=== PATIENT | male | born 1940 | race Caucasian/White ===

== ENCOUNTER 2016-12-04 20:36 | Inpatient (IN) | payer OTHER, BC ==
--- NOTE | 2016-12-04 20:47 | PDOC ---
Upper Respiratory HPI - General Chief Complaint: Respiratory Complaint Stated Complaint: COUGH AND SHORT OF BREATH Date Seen by Provider: 12/04/16 Time Seen by Provider: 20:47 - History of Present Illness Initial Comments: Phong is a 76-year-old male who presents to the emergency department with cough and shortness of breath. He shouldn't indicates that he has been sick for the last week or so. Patient reports that he recently got the pneumonia shot. Last year he got pneumonia after receiving the pneumonia shot. Patient reports that his doctor gave him Augmentin to take if he started to feel sick. He has taken this for the last 2 days. Patient has felt subjective fevers. The cough has occasionally been productive. He denies any chest pain. No pain or swelling in his lower extremities. He has had nausea without vomiting. - Patient Home Medications Home Medications: Home Medications Aspirin [Aspirin Ec] 1 tab PO QD #90 tab 01/18/16 Triamcinolone Acetonide 30 gm TOPICAL QID PRN #1 tube 01/18/16 Amlodipine Besylate/Benazepril [Lotrel] 1 each PO QHS #90 cap 01/19/16 Metformin HCl 1 tab ORAL BID #180 tab 01/19/16 Tamsulosin HCl [Flomax] 0.4 mg PO DAILY #90 cap 01/19/16 Carvedilol 1 tab PO BID #180 tab 02/28/16 Amoxicillin/Potassium Clav [Augmentin 875-125 Tablet] 1 tab PO BID #14 tab 08/30 - Patient Allergies Allergies/Adverse Reactions: Allergies Allergy/AdvReac Type Severity Reaction Status Date / Time [id number] Reductase AdvReac Mild NOT Verified 12/04/16 22:58 Inhibitor APPLICABLE Past Medical History - heen HEENT History: Cataracts, Hard of Hearing, Dentures/Partials Additional HEENT History: CHRONIC SINUSITIS Cardiovascular History: Hypertension, Hyperlipidemia Respiratory History: Denies History, Other (please comment) Gastrointestinal History: GERD Genitourinary History: Other (please comment) Additional Genitourinary History: Enlarged prostate Endocrine History: Type 2 Diabetes (oral) Musculoskeletal History: Denies History Neurological History: Other (please comment) Additional Neurological History: DIABETIC NEUROPATHY Blood Disorders: Denies History Psychiatric History: Denies History History of Sexually Transmitted Diseases: No Cancer History: Denies History History of MDRO: No History of Other Communicable Diseases: No Alcohol Use: Occasionally Substance Use Type: None Previous Surgical History: Yes Type / Date of Surgery: TONSILS AND ADENOIDS. REMOVAL SPOT RIGHT SIDE OF FACE. SURGERY RIGHT GREAT TOE Anesthesia Reactions: No Malignant Hyperthermia: No Significant Family History: Heart disease, Hypertension Past Medical History Reviewed: Reviewed - Changes Made ROS - Limitations ROS Limitations: No Limitations Constitution: REPORTS: Other (Subjective fever) Cardiovascular: DENIES: Chest Pain Respiratory: REPORTS: Cough Productive, Shortness Of Breath Neurological: REPORTS: Denies Neuro Symptoms Gastrointestinal: REPORTS: Nausea. DENIES: Abdominal Pain, Vomitting Endocrine: REPORTS: Fatigue Musculoskeletal: REPORTS: Denies MS Symptoms Genitourinary: REPORTS: Denies Symptoms Eyes: REPORTS: Denies Symptoms ENT: REPORTS: Denies Symptoms Skin: REPORTS: Denies Skin Symptoms Immunologic: POSITIVE: Denies Symptoms Psychiatric: POSITIVE: Denies Psych Symptoms Upper Respiratory/Fever Exam - General Appearance General Appearance: REPORTS: Alert, Cooperative, No Acute Distress - HEENT HEENT: POSITIVE: Head Inspection Nml, Eyes Inspection Nml, Nose Inspection Nml, Oral/Dental Inspect. Nml, PERRL - Neck Neck: REPORTS: Normal Inspection, Supple. DENIES: Lymphadenopathy - Respiratory Respiratory: REPORTS: Other (Course breath sounds bilaterally) - Abdomen Abdomen: Soft: (All Quadrants), Normal Bowel Sounds: (All Quadrants), Denies Tenderness: (All Quadrants), No Splenomegaly: (All Quadrants), No Hepatomegaly: (All Quadrants), No Guarding: (All Quadrants), No Rebound: (All Quadrants) - Cardiovascular Cardiovascular: REPORTS: Regular Rate and Rhythm, Heart Sounds Normal, No JVD - Skin Skin: REPORTS: Intact, Warm, Dry - Extremities Extremity: Non-Tender: (RLE), (LLE), Normal ROM: (RLE), (LLE), Normal Inspection : (RLE), (LLE) - Neurological / Psychological Neurological: POSITIVE: Affect Apporpriate, Oriented X3 Upper Resp/Fever Progress - Results Reviewed by me Lab Results:: Laboratory Results 12/04/16 12/04/16 Range/Units 20:55 21:01 WBC 11.75 H (4.8-10.8) 10^3/uL RBC 5.52 (4.70-6.10) 10^6/uL Hgb 15.6 (14.0-18.0) g/dL Hct 46.4 (42.0-52.0) % MCV 84.1 (80-90) FL MCH 28.3 (27-31) PG MCHC 33.6 (33-37) g/dL RDW Std Deviation 44.4 (39-50) fL RDW Coeff of Karen 14.6 H (11.5-14.5) % Plt Count 384 H (140-350) 10*3/uL MPV 9.5 (7.4-12.2) FL Immature Gran % (Auto) 0.3 (0-5) % Neut % (Auto) 77.3 (50-80) % Lymph % (Auto) 13.3 (10-50) % [place] % (Auto) 5.8 (5-15) % Eos % (Auto) 3.0 (0-8) % Baso % (Auto) 0.3 (0-1) % Immature Gran # (Auto) 0.03 10*3/UL Neut # (Auto) 9.10 10*3/UL Lymph # (Auto) 1.56 10*3/uL [place] # (Auto) 0.68 (0.3-0.8) 10*3/UL Eos # (Auto) 0.35 10*3/UL Baso # (Auto) 0.03 10*3/UL WBC Morphology Comment Normal morphology (NORM) Plt Morphology Comment Normal morphology (NORM) RBC Morph Comment Normal morphology (NORM) VBG pH 7.42 (7.32-7.42) VBG pCO2 40 L (45-55) mmHg VBG HCO3 26 (22-26) mmol/L VBG Base Excess 1 (-2-2) MMOL/L Sodium 132 L (135-145) meq/L Potassium 4.0 (3.8-5.2) meq/L Chloride 98 (98-112) meq/L Carbon Dioxide 24 (23-33) meq/L Anion Gap 10 (5-20) BUN 12 (7-22) mg/dL Creatinine 0.6 L (0.70-1.50) mg/dL Estimated GFR Facility Engineer BUN/Creatinine Ratio 20.00 (6-20) Glucose 130 H (78-110) mg/dL Calculated Osmolality 275.0 (267-292) mOsm/kg Calcium 9.3 (8.7-10.7) mg/dL Total Bilirubin 0.6 (0.3-1.2) mg/dL AST 20 L (21-57) IU/L ALT 13 L (21-72) IU/L Alkaline Phosphatase 86 (38-126) IU/L Troponin I 0.021 (< 0.040) ng/mL Total Protein 7.5 (6.1-8.0) g/dL Albumin 3.9 (3.5-4.8) g/dL Globulin 3.6 (2.50-4.10) g/dL Albumin/Globulin Ratio 1.00 L (1.3-2.0) mg/g EKG Interpreted/Reviewed By Me:: Yes (Unchanged from prior. ST changes in V5 and V6) - Patient's Progress MDM / ED Course: Phong is a 76-year-old male who presents to the emergency department with cough and shortness of breath. His vital signs are notable for hypoxia. Examination demonstrates well-appearing male in no acute distress with coarse breath sounds. Differential diagnosis includes but is not limited to ACS, pulmonary edema, bronchitis, pneumonia. EKG was unchanged from priors and troponin was negative making a cardiac cause less likely. Patient was given duo neb x2 and remained hypoxic. CBC was notable for elevated WBC count. CXR demonstrated findings consistent with early PNA vs pulmonary scarring. Given hypoxia with cough patient was treated for PNA with ceftriaxone and azithromycin and will be admitted for further care. - Consult Consult (If Yes, Name of Consulting MD & Time Called): Yes Consulting MD will see pt:: [place] [facility] [place] - Estimated PCT Patient Care Time (In Minutes): 30 Vital Signs - Recent Vital Signs Vital Signs: Vital Signs (Last 8 hours) Temp Pulse Pulse Resp BP Pulse Ox 12/05/16 03:00 62 92 12/04/16 22:51 20 12/04/16 22:06 97.1 F 69 20 149/64 93 - VS Reviewed Vital Signs Reviewed: Yes Discharge Clinical Impression: Hypoxia Discharge Disposition: Admit to Observation Condition: Stable Date Decision to Admit to Inpatient: 12/04/16 Time Decision to Admit to Inpatient: 22:02
[2016-12-04] MEDS ORDERED: IPRATROPIUM/ALBUTEROL SULFATE 3 ML NEB NEB ONE ×2 (20:48→21:31)
[2016-12-04] MEDS ORDERED: NORMAL SALINE 10 ML SYRINGE FLUSH IVP PRN (20:48)
[2016-12-04 21:04] LABS: BASOPHILS # (AUTO) 0.03 10*3/UL; BASOPHILS % (AUTO) 0.3 % (0-1); EOSINOPHILS # (AUTO) 0.35 10*3/UL; HEMATOCRIT 46.4 % (42.0-52.0); HEMOGLOBIN 15.6 g/dL (14.0-18.0); LYMPHOCYTES # (AUTO) 1.56 10*3/uL; MEAN CORPUSCULAR HEMOGLOBIN 28.3 PG (27-31); MEAN CORPUSCULAR HGB CONC 33.6 g/dL (33-37); MEAN CORPUSCULAR VOLUME 84.1 FL (80-90); MEAN PLATELET VOLUME 9.5 FL (7.4-12.2); MONOCYTES # (AUTO) 0.68 10*3/UL (0.3-0.8); MONOCYTES % (AUTO) 5.8 % (5-15); NEUTROPHILS % (AUTO) 77.3 % (50-80); RED BLOOD COUNT 5.52 10^6/uL (4.70-6.10)
[2016-12-04 21:05] LABS: PLATELET MORPHOLOGY COMMENT NORMAL MORPHOLOGY (NORM); RBC MORPHOLOGY COMMENT NORMAL MORPHOLOGY (NORM); WBC MORPHOLOGY COMMENT NORMAL MORPHOLOGY (NORM)
--- NOTE | 2016-12-04 21:12 | EKG ---
[address] [address] Measurements Intervals [place] Rate: 67 P: 75 WV: 240 QRS: 78 QRSD: 122 T: 124 QT: 449 QTc: 464 Interpretive Statements SINUS RHYTHM WITH FIRST DEGREE AV BLOCK WITH OCCASIONAL SUPRAVENTRICULAR PREMATURE COMPLEXES LEFT VENTRICULAR HYPERTROPHY AND ST-T CHANGE Compared to ECG 01/11/2016 05:45:38 No significant changes Electronically Signed On 12-05-16 13:21:13 MDT by Arian Michael [email or web address]
[2016-12-04 21:14] LABS: BLOOD UREA NITROGEN 12 mg/dL (7-22); CALCIUM 9.3 mg/dL (8.7-10.7); SERUM ALBUMIN 3.9 g/dL (3.5-4.8)
[2016-12-04] MEDS ORDERED: cefTRIAXone Inj 1 GM in Sodium Chloride 0.9% 100 ML IV ONE (21:58)
[2016-12-04] MEDS ORDERED: AZITHROMYCIN 250 MG TABLET PO ONE ×2 (21:58→22:09)
[2016-12-04 22:47] LABS: VENOUS PH 7.42 (7.32-7.42)
[2016-12-04] MEDS ORDERED: LIDOCAINE W/ SODIUM BICARB 0.5 ML SYR SUBD PRN (23:11)
--- NOTE | 2016-12-04 23:26 | PDOC ---
History and Physical - History of Present Illness Date and Time of Service: 12/04/2016 11:25 PM Chief Complaint: Cough, shortness of breath and phlegm production of a week duration History of Present Illness: This is a 76 years old male with medical history significant for history of hypertension, diabetes, cardiomyopathy with ejection fraction of 30-35% on echo done December last year and also history of previous pneumonia last year who presented to the hospital with history of cough and shortness of breath been going on for about a week. There is with the cough there is a phlegm production , he is denying chest pain. He did report some subjective fever. He has a prescription for Augmentin which he start taking about 2 days ago. He felt more short of breath the last 2 days and because of that he came into the ER. His sats were in the mid 80s per the report from the ER physician, chest x-ray suggested maybe early pneumonia so he was put on IV antibiotics and was admitted. He did receive a nebulizer treatment and he said that helped his breathing. He has a history of chronic diarrhea but otherwise no other symptoms. Past Medical History Medical History: 1. Hypertension. 2. Diabetes. 3. History of previous pneumonia last year. 4. Cardiomyopathy, ejection fraction 30-35% on echo done December 2015, large fixed inferior posterior defect on nuclear scan done in December 2015. 5. BPH Surgical History: History of previous neck surgery Pertinent Family History: History of coronary artery disease in his uncle and father Past Social History: Smoke less than a pack a day to 5 years, occlusion drink, no drugs. Tobacco Use: Current Every Day Smoker Do you dip or chew tobacco: No Substance Use Type: None Alcohol Use: Occasionally Medication / Allergies Home Medications: Home Medications Medication Instructions Recorded Confirmed Type Aspirin [Aspirin Ec] 1 tab PO QD #90 tab 01/18/16 12/04/16 Clinic Triamcinolone Acetonide 30 gm TOPICAL QID PRN #1 tube 01/18/16 12/04/16 Clinic Amlodipine Besylate/Benazepril 1 each PO QHS #90 cap 01/19/16 12/04/16 Clinic [Lotrel] Metformin HCl 1 tab ORAL BID #180 tab 01/19/16 12/04/16 Clinic Tamsulosin HCl [Flomax] 0.4 mg PO DAILY #90 cap 01/19/16 12/04/16 Clinic Carvedilol 1 tab PO BID #180 tab 02/28/16 12/04/16 Clinic Amoxicillin/Potassium Clav 1 tab PO BID #14 tab 08/30/16 12/04/16 Clinic [Augmentin 875-125 Tablet] Allergies/Adverse Reactions: Allergies Allergy/AdvReac Type Severity Reaction Status Date / Time [id number] Reductase AdvReac Mild NOT Verified 12/05/16 06:33 Inhibitor APPLICABLE Review of Systems - Review of Systems All Systems: Reviewed & No Additional Complaints Except as Stated Exam - Vitals Vital Signs: Vital Signs Weight 181 lb 9.6 oz - General General Appearance: POSITIVE: No Acute Distress, Cooperative - Head Head Exam: POSITIVE: Normal Inspection - Eye Eye Exam: POSITIVE: Normal Appearance - ENT ENT Exam: POSITIVE: Normal Exam - Neck Neck Exam: POSITIVE: Normal Inspection - Respiratory Additional Respiratory Exam Details: Decreased air entry with minimal crackles at the bases - Cardiovascular Cardiovascular Exam: POSITIVE: RRR - GI/Abdominal GI/Abdominal Exam: POSITIVE: Normal Bowel Sounds, Non Tender, Non Distended, Soft - Rectal Rectal Exam: POSITIVE: Deferred - External Exam: POSITIVE: Deferred - Extremities Extremities Exam: POSITIVE: Normal Inspection - Back Back Exam: POSITIVE: Normal Inspection - Neurological Neurological Exam: POSITIVE: Alert, Oriented x 3 - Psychiatric Psychiatric Exam: POSITIVE: Normal Affect - Integumentary Integumentary Exam: POSITIVE: Normal Color Results - Labs CBC and BMP: 12/05/16 04:30 12/04/16 21:01 - Imaging Status: Image Reviewed by Me (Questionable infiltrate on the right lower lobe) Assessment and Plan - Patient Problems (1) Hypoxia Current Visit: Yes Status: Acute Comment: There is possible infiltrate on the chest x-ray on the right, he did receive antibiotics will continue antibiotics will see what the radiologist think may consider a CT of the chest tomorrow. (2) Hypertension Current Visit: Yes Status: Acute Comment: Same medications (3) Diabetes Current Visit: Yes Status: Acute Comment: Same med
[2016-12-04] MEDS ORDERED: NICOTINE 21 MG /DAY PATCH TRANSDERM ONE (23:39)
[2016-12-04] MEDS: NICOTINE 21 MG /DAY PATCH TRANSDERM SCH (23:58)
[2016-12-05 04:38] LABS: BASOPHILS # (AUTO) 0.02 10*3/UL; BASOPHILS % (AUTO) 0.2 % (0-1); EOSINOPHILS # (AUTO) 0.24 10*3/UL; EOSINOPHILS % (AUTO) 1.8 % (0-8); HEMATOCRIT 42.2 % (42.0-52.0); HEMOGLOBIN 14.3 g/dL (14.0-18.0); LYMPHOCYTES # (AUTO) 1.26 10*3/uL; MEAN CORPUSCULAR HEMOGLOBIN 28.3 PG (27-31); MEAN CORPUSCULAR HGB CONC 33.9 g/dL (33-37); MEAN CORPUSCULAR VOLUME 83.6 FL (80-90); MEAN PLATELET VOLUME 9.6 FL (7.4-12.2); MONOCYTES # (AUTO) 0.85 10*3/UL (0.3-0.8); MONOCYTES % (AUTO) 6.4 % (5-15); NEUTROPHILS # (AUTO) 10.79 10*3/UL; NEUTROPHILS % (AUTO) 81.8 % (50-80); RED BLOOD COUNT 5.05 10^6/uL (4.70-6.10)
[2016-12-05 04:42] LABS: PLATELET MORPHOLOGY COMMENT NORMAL MORPHOLOGY (NORM); RBC MORPHOLOGY COMMENT NORMAL MORPHOLOGY (NORM); WBC MORPHOLOGY COMMENT NORMAL MORPHOLOGY (NORM)
[2016-12-05] MEDS: IPRATROPIUM/ALBUTEROL SULFATE 3 ML NEB NEB SCH ×3 (06:47→19:15)
[2016-12-05] MEDS: BENAZEPRIL 10 MG TABLET PO SCH (08:51)
[2016-12-05] MEDS: TAMSULOSIN 0.4 MG CAPSULE PO SCH (08:51)
[2016-12-05] MEDS: ASPIRIN EC 81 MG TABLET PO SCH (08:52)
[2016-12-05] MEDS: CARVEDILOL 12.5 MG TABLET PO SCH ×2 (08:52→20:50)
[2016-12-05] MEDS: metFORMIN 500 MG TABLET PO SCH ×2 (08:57→17:26)
[2016-12-05] MEDS ORDERED: METFORMIN HCL ORAL SCH (09:00)
--- NOTE | 2016-12-05 10:51 | DI ---
XR CXR 2VW PA/LAT,12/04/2016 8:48 PM: Clinical History: Cough and dyspnea. Previous Exam: CTA chest performed January 11, 2016 and PA and lateral chest performed January 11, 2016 Findings: PA and lateral views of the chest are obtained, and demonstrate some diffuse groundglass density and some increased density within the minor fissure. There is mild blunting of the costophrenic angles. There are degenerative changes of the thoracic spine. There is screw and plate fixation of the lower cervical spine. Mild degenerative changes of the acromioclavicular joint are seen. Impression: Diffuse groundglass density bilaterally most consistent with diffuse edema.
--- NOTE | 2016-12-05 11:23 | PDOC(PROG) ---
Date and Time of Service: 12/05/2016 11:19 AM Interval History: Subjective He feels better compared to yesterday the coughing is better, shortness of breath is also better. No chest pain. Objective : Data - Labs CBC and BMP: 12/05/16 04:30 12/04/16 21:01 Labs - Last 24 Hours: Laboratory Results 12/05/16 Range/Units 04:30 WBC 13.19 H (4.8-10.8) 10^3/uL RBC 5.05 (4.70-6.10) 10^6/uL Hgb 14.3 (14.0-18.0) g/dL Hct 42.2 (42.0-52.0) % MCV 83.6 (80-90) FL MCH 28.3 (27-31) PG MCHC 33.9 (33-37) g/dL RDW Std Deviation 43.4 (39-50) fL RDW Coeff of Karen 14.4 (11.5-14.5) % Plt Count 352 H (140-350) 10*3/uL MPV 9.6 (7.4-12.2) FL Immature Gran % (Auto) 0.2 (0-5) % Neut % (Auto) 81.8 H (50-80) % Lymph % (Auto) 9.6 L (10-50) % [place] % (Auto) 6.4 (5-15) % Eos % (Auto) 1.8 (0-8) % Baso % (Auto) 0.2 (0-1) % Immature Gran # (Auto) 0.03 10*3/UL Neut # (Auto) 10.79 10*3/UL Lymph # (Auto) 1.26 10*3/uL [place] # (Auto) 0.85 H (0.3-0.8) 10*3/UL Eos # (Auto) 0.24 10*3/UL Baso # (Auto) 0.02 10*3/UL WBC Morphology Comment Normal morphology (NORM) Plt Morphology Comment Normal morphology (NORM) RBC Morph Comment Normal morphology (NORM) Objective : Exam - General General Appearance: No Acute Distress, Cooperative - Head Head Exam: Normal Inspection - Eye Eye Exam: Normal Appearance - ENT ENT Exam: Normal Exam - Neck Neck Exam: Normal Inspection - Respiratory Respiratory Exam: Clear to Auscultation - Bilaterally - Cardiovascular Cardiovascular Exam: RRR - GI/Abdominal GI/Abdominal Exam: Normal Bowel Sounds, Non Tender, Non Distended, Soft - Rectal Rectal Exam: Deferred - External Exam: Deferred - Extremities Extremities Exam: Normal Inspection - Back Back Exam: Normal Inspection - Neurological Neurological Exam: Alert, Oriented x 3, CN II-XII Intact - Psychiatric Psychiatric Exam: Normal Affect - Integumentary Integumentary Exam: Normal Color Assessment and Plan - Patient Problems (1) Hypoxia Current Visit: Yes Status: Acute Comment: I spoke with the radiologist, there is no consolidation but there is diffuse groundglass density bilaterally he thinks more this is edema, this may be an atypical infection, I think will do a CT of his the chest and we'll do a echocardiogram. I think will continue antibiotics because of still elevated white count. We'll see the CT and then will decide about steroid or addition of IV Lasix (2) Hypertension Current Visit: Yes Status: Acute Comment: Same med (3) Diabetes Current Visit: Yes Status: Acute Comment: Same med
[2016-12-05] MEDS: NICOTINE 21 MG /DAY PATCH TRANSDERM SCH (20:50)
[2016-12-05] MEDS ORDERED: BENAZEPRIL 10 MG TABLET PO SCH (21:00)
--- NOTE | 2016-12-05 22:29 | DI ---
CT CHEST W/O CONTRAST,12/05/2016 11:11 AM: Clinical History: Cough and shortness of breath. Previous Exam: None at this facility. Findings: Multiple helically acquired CT images are obtained through the chest without contrast, and demonstrat e moderate bilateral pleural effusions. These are slightly larger when compared with the prior exam. Stable diffuse COPD is noted. There is airspace disease within the lung bases which appears to repres ent some subsegmental atelectasis. A few peripheral vascular calcifications are seen. The thyroid is unremarkable. Degenerative changes of the thoracic spine are seen. Coronary artery calcifications and peripheral vascular disease is noted. There is no pleural plaque. There are some prominent mediastinal lymph nodes predominantly within the right paratracheal region. Postsurgical changes are seen of the lower cervical spine. Surrounding soft tissues are unremarkable. Impression: 1. Bilateral pleural effusions slightly larger than the comparison exam. 2. Stable prominence of multiple right paratracheal lymph nodes. 3. Stable COPD.
[2016-12-05] MEDS ORDERED: cefTRIAXone Inj 1 GM in Sodium Chloride 0.9% 100 ML IV SCH (23:00)
[2016-12-05] MEDS ORDERED: NICOTINE 21 MG /DAY PATCH TRANSDERM SCH (23:45)
[2016-12-06] MEDS: IPRATROPIUM/ALBUTEROL SULFATE 3 ML NEB NEB SCH ×4 (00:53→18:34)
[2016-12-06 05:40] LABS: BASOPHILS # (AUTO) 0.02 10*3/UL; BASOPHILS % (AUTO) 0.2 % (0-1); EOSINOPHILS # (AUTO) 0.38 10*3/UL; EOSINOPHILS % (AUTO) 3.8 % (0-8); HEMATOCRIT 43.5 % (42.0-52.0); HEMOGLOBIN 14.7 g/dL (14.0-18.0); LYMPHOCYTES # (AUTO) 1.08 10*3/uL; MEAN CORPUSCULAR HEMOGLOBIN 27.9 PG (27-31); MEAN CORPUSCULAR HGB CONC 33.8 g/dL (33-37); MEAN CORPUSCULAR VOLUME 82.5 FL (80-90); MEAN PLATELET VOLUME 9.7 FL (7.4-12.2); MONOCYTES # (AUTO) 0.71 10*3/UL (0.3-0.8); NEUTROPHILS # (AUTO) 7.89 10*3/UL; RED BLOOD COUNT 5.27 10^6/uL (4.70-6.10)
[2016-12-06 05:41] LABS: PLATELET MORPHOLOGY COMMENT NORMAL MORPHOLOGY (NORM); RBC MORPHOLOGY COMMENT NORMAL MORPHOLOGY (NORM); WBC MORPHOLOGY COMMENT NORMAL MORPHOLOGY (NORM)
[2016-12-06] MEDS ORDERED: FUROSEMIDE 10 MG/1 ML - 2 ML VIAL IVP SCH (07:00)
[2016-12-06] MEDS: metFORMIN 500 MG TABLET PO SCH ×2 (07:01→16:22)
[2016-12-06] MEDS: BENAZEPRIL 10 MG TABLET PO SCH (08:45)
[2016-12-06] MEDS: CARVEDILOL 12.5 MG TABLET PO SCH ×2 (08:46→20:51)
[2016-12-06] MEDS: ASPIRIN EC 81 MG TABLET PO SCH (08:46)
[2016-12-06] MEDS: TAMSULOSIN 0.4 MG CAPSULE PO SCH (08:47)
[2016-12-06] MEDS: FUROSEMIDE 10 MG/1 ML - 4 ML IVP SCH (12:29)
[2016-12-06] MEDS: NORMAL SALINE 10 ML SYRINGE FLUSH IVP PRN ×2 (12:29→20:51)
--- NOTE | 2016-12-06 13:08 | PDOC(PROG) ---
Interval History: Patient says he is breathing a little better today. Denies chest pain nausea vomiting Objective : Data - Labs CBC and BMP: 12/06/16 05:22 12/04/16 21:01 Labs - Last 24 Hours: Laboratory Results 12/06/16 12/06/16 Range/Units 05:22 10:18 WBC 10.11 (4.8-10.8) 10^3/uL RBC 5.27 (4.70-6.10) 10^6/uL Hgb 14.7 (14.0-18.0) g/dL Hct 43.5 (42.0-52.0) % MCV 82.5 (80-90) FL MCH 27.9 (27-31) PG MCHC 33.8 (33-37) g/dL RDW Std Deviation 42.3 (39-50) fL RDW Coeff of Karen 14.1 (11.5-14.5) % Plt Count 378 H (140-350) 10*3/uL MPV 9.7 (7.4-12.2) FL Immature Gran % (Auto) 0.3 (0-5) % Neut % (Auto) 78.0 (50-80) % Lymph % (Auto) 10.7 (10-50) % [place] % (Auto) 7.0 (5-15) % Eos % (Auto) 3.8 (0-8) % Baso % (Auto) 0.2 (0-1) % Immature Gran # (Auto) 0.03 10*3/UL Neut # (Auto) 7.89 10*3/UL Lymph # (Auto) 1.08 10*3/uL [place] # (Auto) 0.71 (0.3-0.8) 10*3/UL Eos # (Auto) 0.38 10*3/UL Baso # (Auto) 0.02 10*3/UL WBC Morphology Comment Normal morphology (NORM) Plt Morphology Comment Normal morphology (NORM) RBC Morph Comment Normal morphology (NORM) NT-Pro-B Natriuret Pep 5070 H (0-450) PG/ML Objective : Exam - General General Appearance: Cooperative - Head Head Exam: Normal Inspection, Normocephalic, Atraumatic - Eye Eye Exam: Normal Appearance, PERRL - Respiratory Respiratory Exam: Clear to Auscultation - Bilaterally, Breathing Non Labored, Normal To Percussion, Decreased Breath Sounds, Crackles - Cardiovascular Cardiovascular Exam: RRR, No Murmur, No Clicks - GI/Abdominal GI/Abdominal Exam: Non Tender, Non Distended, Soft - Extremities Extremities Exam: No Clubbing Present, No Edema Present Assessment and Plan - Patient Problems (1) Pneumonia Current Visit: Yes Status: Acute (2) Acute CHF (congestive heart failure) Current Visit: No Status: Acute Qualifiers: Congestive heart failure type: unspecified congestive heart failure type Qualifier Code(s): (I50.9) Heart failure, unspecified - Assessment / Plan Additional Assessment/Plan Details: #1 recurrent pneumonia with air space disease at the lung bases continue antibiotics #2 I believe the patient is in acute CHF with bilateral pleural effusions trace edema and elevated BNP of 5000 I will start Lasix 40 IV twice a day I cannot obtain a new echo since we do not have a tech but I will get an old echo that he did last year. Troponins remain negative
[2016-12-06] MEDS: NICOTINE 21 MG /DAY PATCH TRANSDERM SCH (20:49)
[2016-12-06] MEDS: cefTRIAXone Inj 2 GM in Sodium Chloride 0.9% 100 ML IV SCH (20:51)
[2016-12-07] MEDS: IPRATROPIUM/ALBUTEROL SULFATE 3 ML NEB NEB SCH ×4 (00:55→19:00)
[2016-12-07 05:53] LABS: BASOPHILS # (AUTO) 0.02 10*3/UL; BASOPHILS % (AUTO) 0.2 % (0-1); EOSINOPHILS # (AUTO) 0.66 10*3/UL; EOSINOPHILS % (AUTO) 7.6 % (0-8); HEMATOCRIT 40.4 % (42.0-52.0); HEMOGLOBIN 13.8 g/dL (14.0-18.0); LYMPHOCYTES # (AUTO) 1.29 10*3/uL; MEAN CORPUSCULAR HEMOGLOBIN 27.9 PG (27-31); MEAN CORPUSCULAR HGB CONC 34.2 g/dL (33-37); MEAN CORPUSCULAR VOLUME 81.8 FL (80-90); MEAN PLATELET VOLUME 9.6 FL (7.4-12.2); MONOCYTES % (AUTO) 9.2 % (5-15); NEUTROPHILS # (AUTO) 5.91 10*3/UL; NEUTROPHILS % (AUTO) 68.1 % (50-80); RED BLOOD COUNT 4.94 10^6/uL (4.70-6.10)
[2016-12-07 05:58] LABS: PLATELET MORPHOLOGY COMMENT NORMAL MORPHOLOGY (NORM); RBC MORPHOLOGY COMMENT NORMAL MORPHOLOGY (NORM); WBC MORPHOLOGY COMMENT NORMAL MORPHOLOGY (NORM)
[2016-12-07 06:04] LABS: BLOOD UREA NITROGEN 9 mg/dL (7-22); CALCIUM 8.5 mg/dL (8.7-10.7); MAGNESIUM 1.8 mg/dL (1.6-2.4); SERUM ALBUMIN 3.3 g/dL (3.5-4.8)
[2016-12-07] MEDS: metFORMIN 500 MG TABLET PO SCH ×2 (07:30→17:33)
[2016-12-07] MEDS: FUROSEMIDE 10 MG/1 ML - 4 ML IVP SCH ×2 (07:31→13:49)
[2016-12-07] MEDS: TAMSULOSIN 0.4 MG CAPSULE PO SCH (09:13)
[2016-12-07] MEDS: ASPIRIN EC 81 MG TABLET PO SCH (09:13)
[2016-12-07] MEDS: CARVEDILOL 12.5 MG TABLET PO SCH ×2 (09:13→20:16)
[2016-12-07] MEDS: BENAZEPRIL 10 MG TABLET PO SCH (09:14)
--- NOTE | 2016-12-07 10:14 | PDOC(PROG) ---
Interval History: Feels much better in regards to his breathing no chest pain nausea or vomiting Objective : Data - Labs CBC and BMP: 12/07/16 05:40 12/07/16 05:40 Labs - Last 24 Hours: Laboratory Results 12/06/16 12/07/16 Range/Units 10:18 05:40 WBC 8.69 (4.8-10.8) 10^3/uL RBC 4.94 (4.70-6.10) 10^6/uL Hgb 13.8 L (14.0-18.0) g/dL Hct 40.4 L (42.0-52.0) % MCV 81.8 (80-90) FL MCH 27.9 (27-31) PG MCHC 34.2 (33-37) g/dL RDW Std Deviation 40.8 (39-50) fL RDW Coeff of Karen 13.9 (11.5-14.5) % Plt Count 351 H (140-350) 10*3/uL MPV 9.6 (7.4-12.2) FL Immature Gran % (Auto) 0.1 (0-5) % Neut % (Auto) 68.1 (50-80) % Lymph % (Auto) 14.8 (10-50) % [place] % (Auto) 9.2 (5-15) % Eos % (Auto) 7.6 (0-8) % Baso % (Auto) 0.2 (0-1) % Immature Gran # (Auto) 0.01 10*3/UL Neut # (Auto) 5.91 10*3/UL Lymph # (Auto) 1.29 10*3/uL [place] # (Auto) 0.80 (0.3-0.8) 10*3/UL Eos # (Auto) 0.66 10*3/UL Baso # (Auto) 0.02 10*3/UL WBC Morphology Comment Normal morphology (NORM) Plt Morphology Comment Normal morphology (NORM) RBC Morph Comment Normal morphology (NORM) Sodium 125 L (135-145) meq/L Potassium 3.8 (3.8-5.2) meq/L Chloride 92 L (98-112) meq/L Carbon Dioxide 24 (23-33) meq/L Anion Gap 9 (5-20) BUN 9 (7-22) mg/dL Creatinine 0.6 L (0.70-1.50) mg/dL Estimated GFR Vc++ Developer BUN/Creatinine Ratio 15.00 (6-20) Glucose 102 (78-110) mg/dL Calculated Osmolality 258.0 L (267-292) mOsm/kg Calcium 8.5 L (8.7-10.7) mg/dL Magnesium 1.8 (1.6-2.4) mg/dL Total Bilirubin 0.6 (0.3-1.2) mg/dL AST 18 L (21-57) IU/L ALT 17 L (21-72) IU/L Alkaline Phosphatase 70 (38-126) IU/L NT-Pro-B Natriuret Pep 5070 H (0-450) PG/ML Total Protein 6.4 (6.1-8.0) g/dL Albumin 3.3 L (3.5-4.8) g/dL Globulin 3.1 (2.50-4.10) g/dL Albumin/Globulin Ratio 1.00 L (1.3-2.0) mg/g Objective : Exam - General General Appearance: Cooperative - Head Head Exam: Normal Inspection - Respiratory Respiratory Exam: Clear to Auscultation - Bilaterally, Decreased Breath Sounds Assessment and Plan - Patient Problems (1) Pneumonia Current Visit: Yes Status: Acute (2) Acute CHF (congestive heart failure) Current Visit: No Status: Acute Qualifiers: Congestive heart failure type: unspecified congestive heart failure type Qualifier Code(s): (I50.9) Heart failure, unspecified - Assessment / Plan Additional Assessment/Plan Details: #1 right-sided heart failure awaiting final echo report patient is diuresing well feels much better #2 pneumonia continue antibiotics #3 hyponatremia we will restrict his fluids to 1500 patient is drinking about 4 L of water a day
[2016-12-07] MEDS: NORMAL SALINE 10 ML SYRINGE FLUSH IVP PRN ×2 (13:49→20:21)
[2016-12-07 17:50] LABS: BUN/CREATININE RATIO 13.75 (6-20); CALCIUM 8.9 mg/dL (8.7-10.7); SERUM ALBUMIN 3.5 g/dL (3.5-4.8)
[2016-12-07] MEDS: NICOTINE 21 MG /DAY PATCH TRANSDERM SCH (20:17)
[2016-12-07] MEDS: cefTRIAXone Inj 2 GM in Sodium Chloride 0.9% 100 ML IV SCH (20:17)
[2016-12-08] MEDS: IPRATROPIUM/ALBUTEROL SULFATE 3 ML NEB NEB SCH ×2 (00:45→06:46)
[2016-12-08 05:13] LABS: BUN/CREATININE RATIO 12.85 (6-20); CALCIUM 8.5 mg/dL (8.7-10.7); SERUM ALBUMIN 3.3 g/dL (3.5-4.8)
[2016-12-08] MEDS: FUROSEMIDE 10 MG/1 ML - 4 ML IVP SCH (07:06)
[2016-12-08] MEDS: metFORMIN 500 MG TABLET PO SCH (07:06)
[2016-12-08 07:51] VITALS: RESP 18; TEMP 97.4
[2016-12-08] MEDS ORDERED: Magnesium Sulfate 2gm (Premix) 2 GM in Premix 1 BAG IV ONE (08:37)
--- NOTE | 2016-12-08 08:43 | DCSUMMARY ---
Hospitalization Summary Hospital Course: Final Discharge Diagnosis: Current Visit Problems Problem Status Priority Diagnosed Code Diabetes Acute E11.9 Hypertension Acute I10 Hypoxia Acute R09.02 Pneumonia Acute J18.9 Right-sided heart failure Diagnostic Data, Laboratory Data, and Procedures of Signifigance: Laboratory Results 12/04/16 12/04/16 12/05/16 Range/Units 20:55 21:01 04:30 WBC 11.75 H 13.19 H (4.8-10.8) 10^3/uL RBC 5.52 5.05 (4.70-6.10) 10^6/uL Hgb 15.6 14.3 (14.0-18.0) g/dL Hct 46.4 42.2 (42.0-52.0) % MCV 84.1 83.6 (80-90) FL MCH 28.3 28.3 (27-31) PG MCHC 33.6 33.9 (33-37) g/dL RDW Std Deviation 44.4 43.4 (39-50) fL RDW Coeff of Karen 14.6 H 14.4 (11.5-14.5) % Plt Count 384 H 352 H (140-350) 10*3/uL MPV 9.5 9.6 (7.4-12.2) FL Immature Gran % (Auto) 0.3 0.2 (0-5) % Neut % (Auto) 77.3 81.8 H (50-80) % Lymph % (Auto) 13.3 9.6 L (10-50) % Concho % (Auto) 5.8 6.4 (5-15) % Eos % (Auto) 3.0 1.8 (0-8) % Baso % (Auto) 0.3 0.2 (0-1) % Immature Gran # (Auto) 0.03 0.03 10*3/UL Neut # (Auto) 9.10 10.79 10*3/UL Lymph # (Auto) 1.56 1.26 10*3/uL Concho # (Auto) 0.68 0.85 H (0.3-0.8) 10*3/UL Eos # (Auto) 0.35 0.24 10*3/UL Baso # (Auto) 0.03 0.02 10*3/UL WBC Morphology Comment Normal morphology Normal morphology (NORM) Plt Morphology Comment Normal morphology Normal morphology (NORM) RBC Morph Comment Normal morphology Normal morphology (NORM) VBG pH 7.42 (7.32-7.42) VBG pCO2 40 L (45-55) mmHg VBG HCO3 26 (22-26) mmol/L VBG Base Excess 1 (-2-2) MMOL/L Sodium 132 L (135-145) meq/L Potassium 4.0 (3.8-5.2) meq/L Chloride 98 (98-112) meq/L Carbon Dioxide 24 (23-33) meq/L Anion Gap 10 (5-20) BUN 12 (7-22) mg/dL Creatinine 0.6 L (0.70-1.50) mg/dL Estimated GFR Paper Sample Clerk BUN/Creatinine Ratio 20.00 (6-20) Glucose 130 H (78-110) mg/dL Calculated Osmolality 275.0 (267-292) mOsm/kg Calcium 9.3 (8.7-10.7) mg/dL Magnesium (1.6-2.4) mg/dL Total Bilirubin 0.6 (0.3-1.2) mg/dL AST 20 L (21-57) IU/L ALT 13 L (21-72) IU/L Alkaline Phosphatase 86 (38-126) IU/L Troponin I 0.021 (< 0.040) ng/mL NT-Pro-B Natriuret Pep (0-450) PG/ML Total Protein 7.5 (6.1-8.0) g/dL Albumin 3.9 (3.5-4.8) g/dL Globulin 3.6 (2.50-4.10) g/dL Albumin/Globulin Ratio 1.00 L (1.3-2.0) mg/g 12/06/16 12/06/16 12/07/16 Range/Units 05:22 10:18 05:40 WBC 10.11 8.69 (4.8-10.8) 10^3/uL RBC 5.27 4.94 (4.70-6.10) 10^6/uL Hgb 14.7 13.8 L (14.0-18.0) g/dL Hct 43.5 40.4 L (42.0-52.0) % MCV 82.5 81.8 (80-90) FL MCH 27.9 27.9 (27-31) PG MCHC 33.8 34.2 (33-37) g/dL RDW Std Deviation 42.3 40.8 (39-50) fL RDW Coeff of Karen 14.1 13.9 (11.5-14.5) % Plt Count 378 H 351 H (140-350) 10*3/uL MPV 9.7 9.6 (7.4-12.2) FL Immature Gran % (Auto) 0.3 0.1 (0-5) % Neut % (Auto) 78.0 68.1 (50-80) % Lymph % (Auto) 10.7 14.8 (10-50) % Concho % (Auto) 7.0 9.2 (5-15) % Eos % (Auto) 3.8 7.6 (0-8) % Baso % (Auto) 0.2 0.2 (0-1) % Immature Gran # (Auto) 0.03 0.01 10*3/UL Neut # (Auto) 7.89 5.91 10*3/UL Lymph # (Auto) 1.08 1.29 10*3/uL Concho # (Auto) 0.71 0.80 (0.3-0.8) 10*3/UL Eos # (Auto) 0.38 0.66 10*3/UL Baso # (Auto) 0.02 0.02 10*3/UL WBC Morphology Comment Normal morphology Normal morphology (NORM) Plt Morphology Comment Normal morphology Normal morphology (NORM) RBC Morph Comment Normal morphology Normal morphology (NORM) VBG pH (7.32-7.42) VBG pCO2 (45-55) mmHg VBG HCO3 (22-26) mmol/L VBG Base Excess (-2-2) MMOL/L Sodium 125 L (135-145) meq/L Potassium 3.8 (3.8-5.2) meq/L Chloride 92 L (98-112) meq/L Carbon Dioxide 24 (23-33) meq/L Anion Gap 9 (5-20) BUN 9 (7-22) mg/dL Creatinine 0.6 L (0.70-1.50) mg/dL Estimated GFR Paper Sample Clerk BUN/Creatinine Ratio 15.00 (6-20) Glucose 102 (78-110) mg/dL Calculated Osmolality 258.0 L (267-292) mOsm/kg Calcium 8.5 L (8.7-10.7) mg/dL Magnesium 1.8 (1.6-2.4) mg/dL Total Bilirubin 0.6 (0.3-1.2) mg/dL AST 18 L (21-57) IU/L ALT 17 L (21-72) IU/L Alkaline Phosphatase 70 (38-126) IU/L Troponin I (< 0.040) ng/mL NT-Pro-B Natriuret Pep 5070 H (0-450) PG/ML Total Protein 6.4 (6.1-8.0) g/dL Albumin 3.3 L (3.5-4.8) g/dL Globulin 3.1 (2.50-4.10) g/dL Albumin/Globulin Ratio 1.00 L (1.3-2.0) mg/g 12/07/16 12/08/16 Range/Units 16:46 04:40 WBC (4.8-10.8) 10^3/uL RBC (4.70-6.10) 10^6/uL Hgb (14.0-18.0) g/dL Hct (42.0-52.0) % MCV (80-90) FL MCH (27-31) PG MCHC (33-37) g/dL RDW Std Deviation (39-50) fL RDW Coeff of Karen (11.5-14.5) % Plt Count (140-350) 10*3/uL MPV (7.4-12.2) FL Immature Gran % (Auto) (0-5) % Neut % (Auto) (50-80) % Lymph % (Auto) (10-50) % Concho % (Auto) (5-15) % Eos % (Auto) (0-8) % Baso % (Auto) (0-1) % Immature Gran # (Auto) 10*3/UL Neut # (Auto) 10*3/UL Lymph # (Auto) 10*3/uL Concho # (Auto) (0.3-0.8) 10*3/UL Eos # (Auto) 10*3/UL Baso # (Auto) 10*3/UL WBC Morphology Comment (NORM) Plt Morphology Comment (NORM) RBC Morph Comment (NORM) VBG pH (7.32-7.42) VBG pCO2 (45-55) mmHg VBG HCO3 (22-26) mmol/L VBG Base Excess (-2-2) MMOL/L Sodium 128 L 128 L (135-145) meq/L Potassium 4.1 3.8 (3.8-5.2) meq/L Chloride 91 L 95 L (98-112) meq/L Carbon Dioxide 28 26 (23-33) meq/L Anion Gap 9 7 (5-20) BUN 11 9 (7-22) mg/dL Creatinine 0.8 0.7 (0.70-1.50) mg/dL Estimated GFR BUN/Creatinine Ratio 13.75 12.85 (6-20) Glucose 108 98 (78-110) mg/dL Calculated Osmolality 265.0 L 264.0 L (267-292) mOsm/kg Calcium 8.9 8.5 L (8.7-10.7) mg/dL Magnesium (1.6-2.4) mg/dL Total Bilirubin 0.6 0.6 (0.3-1.2) mg/dL AST 19 L 22 (21-57) IU/L ALT 20 L 19 L (21-72) IU/L Alkaline Phosphatase 68 67 (38-126) IU/L Troponin I (< 0.040) ng/mL NT-Pro-B Natriuret Pep (0-450) PG/ML Total Protein 6.6 6.4 (6.1-8.0) g/dL Albumin 3.5 3.3 L (3.5-4.8) g/dL Globulin 3.1 3.1 (2.50-4.10) g/dL Albumin/Globulin Ratio 1.10 L 1.00 L (1.3-2.0) mg/g History and Physical pertinent to Admission: . Denies chest pain shortness of breath nausea vomiting Past Medical History Medical History: 1. Hypertension. 2. Diabetes. 3. History of previous pneumonia last year. 4. Cardiomyopathy, ejection fraction 30-35% on echo done December 2015, large fixed inferior posterior defect on nuclear scan done in December 2015. 5. BPH Surgical History: History of previous neck surgery Pertinent Family History: History of coronary artery disease in his uncle and father Past Social History: Smoke less than a pack a day to 5 years, occlusion drink, no drugs. Tobacco Use: Current Every Day Smoker Do you dip or chew tobacco: No Substance Use Type: None Alcohol Use: Occasionally Course of Hospitalization: This very nice 76-year-old gentleman with past medical history significant for high blood pressure, diabetes, cardiomyopathy with ejection fraction of 30-35% on an echo done in December of last year is new echo I was called by the stone chimney mason shows improved the EF and some right sided diastolic dysfunction for results are pending. Patient was diagnosed with the pneumonia and subsequently with the CHF by myself with the right-sided heart failure elevated BNP and fluid overload patient was the started on IV Lasix he diuresed very well continue on antibiotics and overall condition has improved he is walking in the hallway in not the setting without oxygen keeping his sats up to around 98%. He feels stable back to his normal self she will be discharged in stable and improved condition I did write him a prescription for Lasix 40 twice a day by mouth and to finish 2 more days of antibiotic will also see his primary care physician for follow-up in the next 5-7 days On the date of discharge, the patient was examined: Gen.: No acute distress, alert, nontoxic Heart: Regular rate and rhythm, no murmurs, clicks, gallops, or rubs Lungs: Clear to auscultation bilaterally, breathing is nonlabored Abdomen/GI: Normal tones on auscultation, soft, nontender, nondistended Musculoskeletal/extremities: No clubbing, cyanosis, or edema Vitals reviewed and are listed below Vital Signs (24 hrs) Temp Pulse Pulse Resp BP Pulse Ox 12/08/16 07:48 97.4 F 61 18 125/59 95 12/08/16 05:10 94 12/08/16 04:58 97.8 F 62 20 136/68 96 12/08/16 03:00 54 L 96 12/08/16 01:00 98.2 F 65 20 125/68 96 12/07/16 23:00 56 L 94 12/07/16 20:16 97.3 F 61 20 134/60 97 12/07/16 19:00 65 20 96 12/07/16 16:59 97.9 F 66 20 131/71 97 12/07/16 15:00 61 91 12/07/16 13:00 97.8 F 61 20 123/65 96 12/07/16 11:00 58 L 94 12/07/16 09:10 97.5 F 65 20 116/60 2 Assessment and Plan: 1. As per discharge assessments above 2. Disposition: Home 3. Condition on discharge, stable and improved. 4. Diet: regular diet 5. Activities: resume normal activities 6. Follow-Up: 1. PCP 2. 7. Medications at the Time of Discharge: Home Medications Medication Instructions Recorded Confirmed Type Aspirin Aspirin EC 1 tab PO QD #90 tab 01/18/16 12/04/16 Clinic Triamcinolone Acetonide 30 gm TOPICAL QID PRN #1 tube 01/18/16 12/04/16 Clinic Amlodipine Besylate/Benazepril 1 each PO QHS #90 cap 01/19/16 12/04/16 Clinic LOTREL Metformin HCl 1 tab ORAL BID #180 tab 01/19/16 12/04/16 Clinic Tamsulosin HCl Flomax 0.4 mg PO DAILY #90 cap 01/19/16 12/04/16 Clinic Carvedilol 1 tab PO BID #180 tab 02/28/16 12/04/16 Clinic Benazepril HCl Lotensin 40 mg PO DAILY tab 12/08/16 Rx Furosemide Lasix 40 mg PO BID #60 tab 12/08/16 Rx Levofloxacin Tab Levaquin Tab 750 mg PO DAILY #2 tablet 12/08/16 Rx 8. Time, care, counseling and coordination of care for this discharge is greater than 30 minutes. Exam - Vitals Vital Signs: Vital Signs Temperature 97.4 F Temperature Source Oral Pulse Rate [Apical] 64 Pulse Rate [Pulse Oximeter 61 Right] Pulse Rate 54 Respiratory Rate 18 Blood Pressure [Right Arm] 125/59 Blood Pressure [Left Arm] 130/68 Pulse Ox 95 Oxygen Flow Rate 1 Oxygen Delivery Method Nasal Cannula Height 5 ft 9 in Weight 81.374 kg Patient Problems - Patient Problem List (1) Pneumonia Current Visit: Yes Status: Acute (2) Acute CHF (congestive heart failure) Current Visit: No Status: Acute Qualifiers: Congestive heart failure type: unspecified congestive heart failure type Qualifier Code(s): (I50.9) Heart failure, unspecified
[2016-12-08] MEDS: ASPIRIN EC 81 MG TABLET PO SCH (09:02)
[2016-12-08] MEDS: TAMSULOSIN 0.4 MG CAPSULE PO SCH (09:02)
[2016-12-08] MEDS: BENAZEPRIL 10 MG TABLET PO SCH (09:02)
[2016-12-08] MEDS: CARVEDILOL 12.5 MG TABLET PO SCH (09:03)
== END 2016-12-08 10:34 | disposition home or self-care (01) | DRG 195 ==
LOC: ER 20:36 → MED/SURG 22:10
PROVIDERS: ADMIT Internal Medicine; ATTEND Internal Medicine
DX: J18.9 Pneumonia, unspecified organism (principal); R05 Cough; E11.9 Type 2 diabetes mellitus without complications; I10 Essential (primary) hypertension; R09.02 Hypoxemia
CPT/HCPCS: 36415 ×2; 71020; 80053; 82803; 84484; 85025; 87040; 93005; 93010; 94640; 99285 ×2; J7620; 71250; 83735; 83880; 93306; 94761; J0696; J1940; J3475; J7050

== ENCOUNTER → 2016-12-10 | Outpatient (CLI) | payer OTHER, BC ==
[2016-12-10 12:34] LABS: BASOPHILS # (AUTO) 0.04 10*3/UL; BASOPHILS % (AUTO) 0.5 % (0-1); EOSINOPHILS % (AUTO) 4.8 % (0-8); HEMATOCRIT 42.7 % (42.0-52.0); HEMOGLOBIN 14.1 g/dL (14.0-18.0); LYMPHOCYTES # (AUTO) 1.44 10*3/uL; MEAN CORPUSCULAR HEMOGLOBIN 27.8 PG (27-31); MEAN CORPUSCULAR VOLUME 84.2 FL (80-90); MEAN PLATELET VOLUME 9.4 FL (7.4-12.2); MONOCYTES % (AUTO) 8.5 % (5-15); NEUTROPHILS # (AUTO) 5.66 10*3/UL; NEUTROPHILS % (AUTO) 68.6 % (50-80); RED BLOOD COUNT 5.07 10^6/uL (4.70-6.10)
[2016-12-10 12:54] LABS: HEMOGLOBIN A1C 6.41 % (4.2-6.0)
[2016-12-10 13:07] LABS: PLATELET MORPHOLOGY COMMENT NORMAL MORPHOLOGY (NORM); RBC MORPHOLOGY COMMENT NORMAL MORPHOLOGY (NORM); WBC MORPHOLOGY COMMENT NORMAL MORPHOLOGY (NORM)
[2016-12-10 13:19] LABS: CALCIUM 9.1 mg/dL (8.7-10.7); SERUM ALBUMIN 3.7 g/dL (3.5-4.8)
[2016-12-10 13:27] LABS: CREATININE, URINE 36.3 MG/DL (15-500)
[2016-12-10 13:56] LABS: CHOL/HDL RATIO 2.95 RATIO (0-4.0); LDL CHOLESTEROL,CALCULATED 60.6 mg/dL
== END ==
LOC: MOB LAB 12:04
PROVIDERS: ATTEND Family Medicine
DX: E11.9 Type 2 diabetes mellitus without complications (principal); E78.5 Hyperlipidemia, unspecified; J44.9 Chronic obstructive pulmonary disease, unspecified; I10 Essential (primary) hypertension; R09.02 Hypoxemia; I50.9 Heart failure, unspecified; F17.200 Nicotine dependence, unspecified, uncomplicated; Z12.5 Encounter for screening for malignant neoplasm of prostate
CPT/HCPCS: 36415; 80053; 80061; 82043; 82550; 83036; 83880; 84443; 85025; 99213; G0103; G0463

== ENCOUNTER → 2016-12-20 | Outpatient (CLI) | payer OTHER, BC | LOC: MMPC 11:11 | PROVIDERS: ATTEND Internal Medicine | DX: J44.1 Chronic obstructive pulmonary disease with (acute) exacerbation (principal); I50.42 Chronic combined systolic (congestive) and diastolic (congestive) heart failure; I10 Essential (primary) hypertension; E11.9 Type 2 diabetes mellitus without complications | CPT/HCPCS: 99214; G0463 ==

== ENCOUNTER → 2017-01-16 | Outpatient (CLI) | payer OTHER, BC ==
--- NOTE | 2017-01-16 15:35 | DI ---
XR FOOT COMPLETE MIN 3VW WB,01/16/2017 11:34 AM: Clinical History: Right foot pain. Previous Exam: November 22, 2010 Findings: 3 views of the right foot are obtained, and demonstrate anatomic alignment without fractures. There is enthesopathy at the insertion of the Achilles tendon. There is degenerative hypertrophy of the right first metatarsophalangeal joint. There is mild osteopenia. There is a stable os trigonum. There is no ankle joint effusion. Impression: Degenerative changes as above essentially unchanged from the prior exam.
== END ==
LOC: MOB RAD 11:36
PROVIDERS: ATTEND Podiatrist Foot & Ankle Surgery
DX: M79.674 Pain in right toe(s) (principal); M19.071 Primary osteoarthritis, right ankle and foot
CPT/HCPCS: 73630

== ENCOUNTER → 2017-02-01 | Day surgery (SDC) | payer OTHER, BC ==
[~2017-02-01] MED LIST: BUPivacaine Inj 0.5% PF (5mg/ml) 10ml vial ONE; HYDROcodone-APAP 5 MG -325 MG TABLET PO PRN; Lactated Ringers 1,000 ML PRIMARY IV ONE; MIDAZOLAM 5 MG/1 ML ONE; NORMAL SALINE 10 ML SYRINGE FLUSH IVP PRN; fentaNYL Inj 250 MCG/5 ML VIAL ONE
[2017-02-01] MEDS: LIDOCAINE W/ SODIUM BICARB 0.5 ML SYR ONE (08:42)
--- NOTE | 2017-02-01 10:54 | GEN.OPNOTE ---
Operative Report Surgeon: Tobi Briones DPM Anesthesia Type: Local (with 0.5% Marcaine plain), MAC Anesthesia Provider: Gabe Desir CRNA Surgery Date: 02/01/17 Preoperative Diagnosis: 1. Exostosis right foot / 5th toe. 2. Right foot pain. 3. DM 2. 4. Smoker Postoperative Diagnosis: 1. Exostosis right foot / 5th toe. 2. Right foot pain. 3. DM 2. 4. Smoker Procedure: 1. Exostectomy right 5th toe PIPJ. Estimated Blood Loss (mL): 0 (a pneumatic cuff was used on the right ankle at 250 mmHg pressure for a total of 26 minutes.) Fluids: 2 g Ancef given preoperatively. 800 mL lactated Ringer's. Complications: None Findings at Surgery: Large exostosis of the proximal interphalangeal joint Indications for the Procedure: Ongoing pain of the right fifth toe these of this exostosis and overlying corn for 7 years. Description of Procedure: The patient was brought to the operating room and placed in the supine position. Monitored anesthesia care was given. A timeout was performed. Preoperative radiographs were displayed and reviewed, and the area of concern was marked on the foot. The foot was then exsanguinated with an elastic Esmarch , after which a pneumatic cuff was inflated about the right ankle to 250 mmHg pressure. A dorsal lateral linear incision that included ellipsing the corn of the right fifth toe was made. The incision was then carried deep to the capsular apparatus. The extensor digitorum longus tendon was reflected medially. The periosteum was incised and reflected from the exostosis which was readily and easily identifiable. Using a sagittal saw the exostosis was removed and smoothed in several planes. It was copiously irrigated. And then closed with 4-0 Vicryl for deep and capsular closure. And 4-0 nylon for skin in running subcuticular fashion, and 1 simple interrupted. Dressing was reinforced Mastisol and Steri-Strips. Dressing consisted of her form, gauze, Coban, Kerlix, and then a second Coban for the foot to maintain booty-type fashion. The pneumatic cuff was released after 26 minutes total time. Return was noted to all toes. The patient was returned to recovery.
[2017-02-01 13:43] VITALS: RESP 14; TEMP 97.3
--- NOTE | 2017-02-03 10:57 | DI ---
XR FOOT COMPLETE MIN 3VW,02/01/2017 10:33 AM: Clinical History: Right toe exostosis. Previous Exam: January Findings: 3 views of the right foot are obtained, and demonstrate anatomic alignment without fractures. Extensi ve degenerative changes of the right first metatarsophalangeal joint are seen. There is enthesopathy noted at the insertion of the Achilles tendon. Surrounding soft tissues are unremarkable. Impression: Mild degenerative changes predominantly involving the right first metatarsophalangeal joint otherwise unremarkable.
== END | disposition home or self-care (01) ==
LOC: SDSC 08:22
PROVIDERS: ATTEND Podiatrist Foot & Ankle Surgery
DX: M79.674 Pain in right toe(s) (principal); M89.8X7 Other specified disorders of bone, ankle and foot; E11.9 Type 2 diabetes mellitus without complications; I10 Essential (primary) hypertension; J44.9 Chronic obstructive pulmonary disease, unspecified
CPT/HCPCS: 28124 ×2; 73630; J2704; J3010; J2250; J3490; J7120

== ENCOUNTER → 2017-02-07 | Outpatient (CLI) | payer OTHER, BC | LOC: MMPC 10:00 | PROVIDERS: ATTEND Podiatrist Foot & Ankle Surgery | DX: Z98.890 Other specified postprocedural states (principal) ==

== ENCOUNTER → 2017-02-14 | Outpatient (CLI) | payer OTHER, BC | LOC: MMPC 10:00 | PROVIDERS: ATTEND Podiatrist Foot & Ankle Surgery | DX: Z48.02 Encounter for removal of sutures (principal); Z98.890 Other specified postprocedural states ==

== ENCOUNTER → 2017-02-27 | Outpatient (CLI) | payer OTHER, BC ==
[2017-02-27 14:21] LABS: BUN/CREATININE RATIO 18.75 (6-20); CALCIUM 9.4 mg/dL (8.7-10.7); SERUM ALBUMIN 3.7 g/dL (3.5-4.8)
== END ==
LOC: LAB 13:38
PROVIDERS: ATTEND Internal Medicine
DX: I50.42 Chronic combined systolic (congestive) and diastolic (congestive) heart failure (principal); E78.5 Hyperlipidemia, unspecified
CPT/HCPCS: 36415; 80053; 83880

== ENCOUNTER → 2017-02-28 | Outpatient (CLI) | payer OTHER, BC | LOC: MMPC 11:11 | PROVIDERS: ATTEND Internal Medicine | DX: J44.9 Chronic obstructive pulmonary disease, unspecified (principal); I10 Essential (primary) hypertension; E78.5 Hyperlipidemia, unspecified; E11.9 Type 2 diabetes mellitus without complications | CPT/HCPCS: 99214; G0463 ==